=== PATIENT | female | born 1995 | race Caucasian/White ===

== ENCOUNTER 2018-03-18 20:51 | Observation (INO) ==
[2018-03-18 21:18] LABS: Bilirubin,Urine Large (Negative); Blood,Urine Moderate (Negative); Clarity,Urine Cloudy (Clear); Color,Urine Dark Yellow (Yellow); Glucose,Urine (UA) Normal (Normal); Ketones,Urine Negative (Negative); Leukocyte Esterase,Urine Small (Negative); Nitrite,Urine Negative (Negative); PH,Urine 6.5 pH Units (5.0-8.0); Protein,Urine Negative (Neg-Trace); Specific Gravity,Urine 1.009 (1.010-1.025)
[2018-03-18 21:20] LABS: Bacteria,Urine Few per hpf (None-Few); Hyaline Casts,Urine None Seen per lpf (None-Few); Squamous Epithelial Cell,Urine Many per lpf (None-Few)
--- NOTE | 2018-03-18 22:37 | Emergency Department Note ---
Disposition Clinical Impression: Acute hepatitis Cholelithiasis Qualifiers: Cholelithiasis location: other site Biliary obstruction: with biliary obstruction Qualified Code(s): K80.81 - Other cholelithiasis with obstruction Abdominal pain Qualifiers: Abdominal location: unspecified location Qualified Code(s): R10.9 - Unspecified abdominal pain Disposition: Admitted As Inpatient Condition: Good Referrals: NONE,PCP [Primary Care Provider] - Deshawn Flowers MD [Family Provider] - Forms: ED Satisfaction Letter, Work/School Release Time of Disposition: 04:40 Abdominal Pain HPI - General Chief Complaint: ED Abdominal Pain Stated Complaint: RUQ Pain Time Seen by Provider: 03/18/18 22:30 Source: patient, family Mode of arrival: ambulatory Limitations: no limitations Nursing Notes Reviewed: Yes Vital Signs Reviewed: Yes - History of Present Illness HPI Narrative: 22-year-old female presents emergency department for a right upper quadrant pain. She was diagnosed with gallstones approximately 5 to 6 months ago. This was during her . It gradually resolved. She states approximately the past 3 days she has been experiencing significant abdominal pain mostly in the right upper quadrant in epigastric region that radiates to the back. She has associated nausea and vomiting. Reports loose diarrhea with pale coloration. Describes the pain as an ache and sharpness. No injury or trauma to the area. She is scheduled for surgery with Dr. Black March 30. She is been taken Tylenol with minimal relief. She admits to chills. Denies any chest pain. She does report the pain mixer sure breath. Denies any vaginal discharge, urinary symptoms. History of a section. Pain Scale: 7 - Related Data Allergies Allergy/AdvReac Type Severity Reaction Status Date / Time No Known Allergies Allergy Verified 03/19/18 04:02 All systems ED: reviewed and negative except as stated. Review of Systems: As Per HPI Constitutional: Reports: chills. Denies: fever ENT ED: Denies: congestion Cardiovascular: Denies: chest pain Respiratory: Reports: dyspnea Gastrointestinal: Reports: abdominal pain, nausea, vomiting, diarrhea Genitourinary: Denies: urgency, dysuria Musculoskeletal: Reports: back pain Integumentary: Denies: rash, abrasion Neurological: Denies: headache Abdominal Pain PMH - Past Medical History Medical history: Reports: no medical history Female Surgical History: Reports: Psychiatric history: Reports: no psych history - Social History Smoking status: Never smoker Alcohol use: Reports: none Drug use: Reports: none Physical Exam - General Limitations: no limitations General appearance: alert, in no apparent distress - Head Head exam: atraumatic, normocephalic, normal inspection - Eye Eye exam: Present: normal appearance, PERRL, EOMI. Absent: scleral icterus - ENT ENT exam: normal exam, normal oropharynx, mucous membranes moist - Neck Neck exam: Present: normal inspection, full ROM, trachea midline - Chest Chest inspection: Present: normal inspection, symmetric chest wall rise - Respiratory Respiratory exam: Present: normal lung sounds bilaterally - Cardiovascular Cardiovascular exam: Present: regular rate, normal rhythm, normal heart sounds - Abdominal Exam Abdominal exam: Present: tenderness, normal bowel sounds, Ramos's sign. Absent : distention, guarding, rebound, rigidity, tenderness at McBurney's Point Abdominal tenderness: Present: RUQ, epigastrium - Extremities Exam Extremities exam: Present: normal inspection, full ROM, normal capillary refill. Absent: tenderness, pedal edema - Back Exam Back exam: Present: normal inspection, full ROM. Absent: tenderness - Neurological Exam Neurological exam: Present: alert, oriented X3 - Psychiatric Psychiatric exam: Present: normal affect, normal mood - Skin Skin exam: Present: warm, dry, intact, normal color. Absent: rash, cyanosis, diaphoresis Course Course Narrative: Patient presents with right upper quadrant for the past several days. History of gallstones. She is scheduled for surgery within the next 2 weeks. She denies alcohol use. She is tender in the right upper quadrant in epigastric region. No evidence of jaundice or sclera ictera. Labs ordered pain medication ordered. - Reevaluation(s) Reevaluation #1: Review for labs is not show a leukocytosis. Her LFTs are significantly elevated. Hepatitis panel ordered. Her bilirubin is also elevated. Concerning for possible acute cholecystitis v hepatitis. She admits eating sushi but after clarification she states she does not yet to [employer]. Gallbladder ultrasound ordered. Reevaluation #2: Patient reports intermittent relief pain medication. Review of her gallbladder ultrasound shows cholelithiasis without evidence of cholecystitis. On repeat abdominal examination she continues to be tender in the right upper quadrant. I discussed with the on-call surgeon Dr. Enrique who believes this is likely not the gallbladder and possibly acute hepatitis. The panel is pending. He would be happy to see the patient in consultation. [place] the patient to the hospital service for further pain management, nausea vomiting, elevated liver enzymes and possible acute hepatitis. Patients in agreement with this plan. Gallbladder Ultrasound 03/19/18 02:18 IMPRESSION: Cholelithiasis without evidence of cholecystitis or bile duct dilatation. Hepatic steatosis. D/ / Dada Melendez / Dada Melendez Interpreting Provider: Dada Melendez Time: 04:19 - Consultations Consultation #1: Spoke with on-call hospitalist antoinette Vásquez to admit for RUQ pain, acute hepatitis, cholelithiasis. No further orders at this time Time: 04:40 Vital Signs Temperature 97.7 F 03/18/18 20:54 Pulse Rate 103 03/18/18 20:54 Respiratory Rate 16 03/18/18 20:54 Blood Pressure 132/95 03/18/18 20:54 O2 Sat by Pulse Oximetry 98 03/18/18 20:54 Temperature 97.7 F 03/18/18 20:54 Pulse Rate 90 03/19/18 04:00 Respiratory Rate 16 03/19/18 04:00 Blood Pressure 120/84 03/19/18 04:00 O2 Sat by Pulse Oximetry 99 03/19/18 04:00 Oxygen Delivery Oxygen Delivery Room Air Abdominal Pain - MDM Narrative Medical decision making narrative: Patient was discussed with my attending physician who agrees with ED management and final disposition. They independently evaluated the patient. Please refer to their attestation to this encounter for additional information. This note was generated by [employer] voice recognition software and as a result grammatical or spelling errors may occur using this program. - Medical Records Medical records reviewed: Yes I reviewed the patient's medical records. - Lab Data Lab results reviewed: Yes I reviewed the patient's lab results. Result diagrams: 03/18/18 22:31 03/18/18 22:31 Lab Results 03/18/18 03/18/18 03/18/18 Range/Units 21:04 21:04 22:31 WBC 6.7 (4.3-11.1) K/mcL RBC 5.19 H (3.82-4.97) M/mcL Hgb 14.1 (11.5-15.4) g/dL Hct 41.4 (35.3-44.9) % MCV 79.8 L (83.0-100.0) fL MCH 27.2 L (28.0-33.3) pg MCHC 34.1 (31.6-35.5) g/dL RDW 14.4 (11.5-14.5) % Plt Count 323 (140-400) K/mcL MPV 9.6 (9.4-12.4) fL Immature Gran % 0.5 (0-4) % Seg Neutrophils % 67.1 % Lymphocytes % 20.0 % Monocytes % 10.7 % Eosinophils % 1.4 % Basophils % 0.3 % Neutrophils # 4.5 (1.6-8.9) K/mcL Lymphocytes # 1.3 (0.6-4.6) K/mcL Monocytes # 0.7 (0.0-1.3) K/mcL Eosinophils # 0.1 (0.0-0.6) K/mcL Basophils # 0.0 (0.0-0.2) K/mcL Sodium (136-145) mEq/L Potassium (3.5-5.1) mEq/L Chloride (98-107) mEq/L Carbon Dioxide (23-29) mEq/L BUN (6-20) mg/dL Creatinine (0.60-1.20) mg/dL Est GFR ( Amer) (> 60) Est GFR (Non-Af Amer) (> 60) BUN/Creatinine Ratio (6-26) Glucose (70-105) mg/dL Calculated Osmolality (280-300) Calcium (8.6-10.3) mg/dL Total Bilirubin (0.3-1.0) mg/dL Direct Bilirubin (0.0-0.2) mg/dL Indirect Bilirubin (0.0-1.2) mg/dL AST (13-39) Units/L ALT (7-52) Units/L Alkaline Phosphatase (34-104) Units/L Serum Total Protein (6.4-8.9) g/dL Albumin (3.5-5.7) g/dL Globulin (2.4-3.5) g/dL Albumin/Globulin Ratio (1.1-2.2) Lipase (11-82) Units/L Urine Color Dark Yellow (Yellow) Urine Clarity Cloudy A (Clear) Urine pH 6.5 (5.0-8.0) pH Units Ur Specific [place] 1.009 L (1.010-1.025) Urine Protein Negative (Neg-Trace) mg/dL Urine Glucose (UA) Normal (Normal) mg/dL Urine Ketones Negative (Negative) mg/dL Urine Blood Moderate H (Negative) Urine Nitrite Negative (Negative) Urine Bilirubin Large H (Negative) Urine Urobilinogen 4.0 H (Normal) mg/dL Ur Leukocyte Esterase Small H (Negative) Urine Microscopic RBC 3-5 H (0-3) per hpf Urine Microscopic WBC 3-5 H (0-3) per hpf Ur Squamous Epith Cells Many H (None-Few) per lpf Urine Bacteria Few (None-Few) per hpf Hyaline Casts None Seen (None-Few) per lpf Ur Culture Indicated? NO. A (NO) Urine Test Negative (Negative) 03/18/18 Range/Units 22:31 WBC (4.3-11.1) K/mcL RBC (3.82-4.97) M/mcL Hgb (11.5-15.4) g/dL Hct (35.3-44.9) % MCV (83.0-100.0) fL MCH (28.0-33.3) pg MCHC (31.6-35.5) g/dL RDW (11.5-14.5) % Plt Count (140-400) K/mcL MPV (9.4-12.4) fL Immature Gran % (0-4) % Seg Neutrophils % % Lymphocytes % % Monocytes % % Eosinophils % % Basophils % % Neutrophils # (1.6-8.9) K/mcL Lymphocytes # (0.6-4.6) K/mcL Monocytes # (0.0-1.3) K/mcL Eosinophils # (0.0-0.6) K/mcL Basophils # (0.0-0.2) K/mcL Sodium 137 (136-145) mEq/L Potassium 3.7 (3.5-5.1) mEq/L Chloride 106 (98-107) mEq/L Carbon Dioxide 23 (23-29) mEq/L BUN 10 (6-20) mg/dL Creatinine 0.58 L (0.60-1.20) mg/dL Est GFR ( Amer) > 60 (> 60) Est GFR (Non-Af Amer) > 60 (> 60) BUN/Creatinine Ratio 17 (6-26) Glucose 114 H (70-105) mg/dL Calculated Osmolality 284 (280-300) Calcium 9.8 (8.6-10.3) mg/dL Total Bilirubin 2.5 H (0.3-1.0) mg/dL Direct Bilirubin 1.5 H (0.0-0.2) mg/dL Indirect Bilirubin 1.0 (0.0-1.2) mg/dL AST 503 H (13-39) Units/L ALT > 500 H (7-52) Units/L Alkaline Phosphatase 213 H (34-104) Units/L Serum Total Protein 7.7 (6.4-8.9) g/dL Albumin 4.9 (3.5-5.7) g/dL Globulin 2.8 (2.4-3.5) g/dL Albumin/Globulin Ratio 1.8 (1.1-2.2) Lipase 12 (11-82) Units/L Urine Color (Yellow) Urine Clarity (Clear) Urine pH (5.0-8.0) pH Units Ur Specific [place] (1.010-1.025) Urine Protein (Neg-Trace) mg/dL Urine Glucose (UA) (Normal) mg/dL Urine Ketones (Negative) mg/dL Urine Blood (Negative) Urine Nitrite (Negative) Urine Bilirubin (Negative) Urine Urobilinogen (Normal) mg/dL Ur Leukocyte Esterase (Negative) Urine Microscopic RBC (0-3) per hpf Urine Microscopic WBC (0-3) per hpf Ur Squamous Epith Cells (None-Few) per lpf Urine Bacteria (None-Few) per hpf Hyaline Casts (None-Few) per lpf Ur Culture Indicated? (NO) Urine Test (Negative) - Radiology Data Radiology results reviewed: Yes I reviewed the patient's radiology results. Gallbladder Ultrasound 03/19/18 02:18
--- NOTE | 2018-03-18 23:18 | Emergency Department Note ---
Disposition Clinical Impression: Acute hepatitis Cholelithiasis Qualifiers: Cholelithiasis location: other site Biliary obstruction: with biliary obstruction Qualified Code(s): K80.81 - Other cholelithiasis with obstruction Abdominal pain Qualifiers: Abdominal location: unspecified location Qualified Code(s): R10.9 - Unspecified abdominal pain Disposition: Admitted As Inpatient Condition: Good Referrals: NONE,PCP [Primary Care Provider] - Deshawn Flowers MD [Family Provider] - Forms: ED Satisfaction Letter, Work/School Release Time of Disposition: 03:55 General Adult HPI - General Chief complaint: ED Abdominal Pain Stated complaint: RUQ Pain Time Seen by Provider: 03/18/18 22:30 Source: patient Mode of arrival: private vehicle Limitations: no limitations Nursing Notes Reviewed: Yes Vital Signs Reviewed: Yes - History of Present Illness HPI Narrative: Ms. Mckinnon is a 22 yo F with a PMH of Cholelithiasis presents with RUQ pain for the last 3 days. She states the pain started on Friday without resolve in the RUQ and radiates to her back with N/V episodes periodically. [facility] which confirmed cholelithiasis without cholecystitis and is scheduled for surgery here at [place] on the . She denies fevers, SOB, CP, changes to her bowel or bladder and vaginal discharge. I have re-performed and reviewed the history documented by the medical student, and I confirm its accuracy except as noted below Please see my note for further details regarding the full history, review systems, physical exam and medical decision-making Pain Scale: 7 - Related Data Allergies Allergy/AdvReac Type Severity Reaction Status Date / Time No Known Allergies Allergy Verified 09/26/17 20:19 Past Medical History - Past Medical History Medical history: Reports: no medical history Psychiatric history: Reports: no psych history - Social History Smoking Status: Never smoker Alcohol use: Reports: none Drug use: Reports: none Physical Exam - General Limitations: no limitations General appearance: alert, in no apparent distress Course Vital Signs Temperature 97.7 F 03/18/18 20:54 Pulse Rate 103 03/18/18 20:54 Respiratory Rate 16 03/18/18 20:54 Blood Pressure 132/95 03/18/18 20:54 O2 Sat by Pulse Oximetry 98 03/18/18 20:54 Temperature 97.7 F 03/18/18 20:54 Pulse Rate 71 03/19/18 02:58 Respiratory Rate 15 03/19/18 02:58 Blood Pressure 121/82 03/19/18 02:58 O2 Sat by Pulse Oximetry 100 03/19/18 02:58 Oxygen Delivery Oxygen Delivery Room Air Medical Decision Making - MDM Narrative Medical decision making narrative: Patient was discussed with my attending physician who agrees with ED management and final disposition. They independently evaluated the patient. Please refer to their attestation to this encounter for additional information. This note was generated by [employer] voice recognition software and as a result grammatical or spelling errors may occur using this program. - Medical Records Medical records reviewed: Yes I reviewed the patient's medical records. - Lab Data Lab results reviewed: Yes I reviewed the patient's lab results. Result diagrams: 03/18/18 22:31 03/18/18 22:31 Lab Results 03/18/18 03/18/18 03/18/18 Range/Units 21:04 21:04 22:31 WBC 6.7 (4.3-11.1) K/mcL RBC 5.19 H (3.82-4.97) M/mcL Hgb 14.1 (11.5-15.4) g/dL Hct 41.4 (35.3-44.9) % MCV 79.8 L (83.0-100.0) fL MCH 27.2 L (28.0-33.3) pg MCHC 34.1 (31.6-35.5) g/dL RDW 14.4 (11.5-14.5) % Plt Count 323 (140-400) K/mcL MPV 9.6 (9.4-12.4) fL Immature Gran % 0.5 (0-4) % Seg Neutrophils % 67.1 % Lymphocytes % 20.0 % Monocytes % 10.7 % Eosinophils % 1.4 % Basophils % 0.3 % Neutrophils # 4.5 (1.6-8.9) K/mcL Lymphocytes # 1.3 (0.6-4.6) K/mcL Monocytes # 0.7 (0.0-1.3) K/mcL Eosinophils # 0.1 (0.0-0.6) K/mcL Basophils # 0.0 (0.0-0.2) K/mcL Sodium (136-145) mEq/L Potassium (3.5-5.1) mEq/L Chloride (98-107) mEq/L Carbon Dioxide (23-29) mEq/L BUN (6-20) mg/dL Creatinine (0.60-1.20) mg/dL Est GFR ( Amer) (> 60) Est GFR (Non-Af Amer) (> 60) BUN/Creatinine Ratio (6-26) Glucose (70-105) mg/dL Calculated Osmolality (280-300) Calcium (8.6-10.3) mg/dL Total Bilirubin (0.3-1.0) mg/dL Direct Bilirubin (0.0-0.2) mg/dL Indirect Bilirubin (0.0-1.2) mg/dL AST (13-39) Units/L ALT (7-52) Units/L Alkaline Phosphatase (34-104) Units/L Serum Total Protein (6.4-8.9) g/dL Albumin (3.5-5.7) g/dL Globulin (2.4-3.5) g/dL Albumin/Globulin Ratio (1.1-2.2) Lipase (11-82) Units/L Urine Color Dark Yellow (Yellow) Urine Clarity Cloudy A (Clear) Urine pH 6.5 (5.0-8.0) pH Units Ur Specific [place] 1.009 L (1.010-1.025) Urine Protein Negative (Neg-Trace) mg/dL Urine Glucose (UA) Normal (Normal) mg/dL Urine Ketones Negative (Negative) mg/dL Urine Blood Moderate H (Negative) Urine Nitrite Negative (Negative) Urine Bilirubin Large H (Negative) Urine Urobilinogen 4.0 H (Normal) mg/dL Ur Leukocyte Esterase Small H (Negative) Urine Microscopic RBC 3-5 H (0-3) per hpf Urine Microscopic WBC 3-5 H (0-3) per hpf Ur Squamous Epith Cells Many H (None-Few) per lpf Urine Bacteria Few (None-Few) per hpf Hyaline Casts None Seen (None-Few) per lpf Ur Culture Indicated? NO. A (NO) Urine Test Negative (Negative) 03/18/18 Range/Units 22:31 WBC (4.3-11.1) K/mcL RBC (3.82-4.97) M/mcL Hgb (11.5-15.4) g/dL Hct (35.3-44.9) % MCV (83.0-100.0) fL MCH (28.0-33.3) pg MCHC (31.6-35.5) g/dL RDW (11.5-14.5) % Plt Count (140-400) K/mcL MPV (9.4-12.4) fL Immature Gran % (0-4) % Seg Neutrophils % % Lymphocytes % % Monocytes % % Eosinophils % % Basophils % % Neutrophils # (1.6-8.9) K/mcL Lymphocytes # (0.6-4.6) K/mcL Monocytes # (0.0-1.3) K/mcL Eosinophils # (0.0-0.6) K/mcL Basophils # (0.0-0.2) K/mcL Sodium 137 (136-145) mEq/L Potassium 3.7 (3.5-5.1) mEq/L Chloride 106 (98-107) mEq/L Carbon Dioxide 23 (23-29) mEq/L BUN 10 (6-20) mg/dL Creatinine 0.58 L (0.60-1.20) mg/dL Est GFR ( Amer) > 60 (> 60) Est GFR (Non-Af Amer) > 60 (> 60) BUN/Creatinine Ratio 17 (6-26) Glucose 114 H (70-105) mg/dL Calculated Osmolality 284 (280-300) Calcium 9.8 (8.6-10.3) mg/dL Total Bilirubin 2.5 H (0.3-1.0) mg/dL Direct Bilirubin 1.5 H (0.0-0.2) mg/dL Indirect Bilirubin 1.0 (0.0-1.2) mg/dL AST 503 H (13-39) Units/L ALT > 500 H (7-52) Units/L Alkaline Phosphatase 213 H (34-104) Units/L Serum Total Protein 7.7 (6.4-8.9) g/dL Albumin 4.9 (3.5-5.7) g/dL Globulin 2.8 (2.4-3.5) g/dL Albumin/Globulin Ratio 1.8 (1.1-2.2) Lipase 12 (11-82) Units/L Urine Color (Yellow) Urine Clarity (Clear) Urine pH (5.0-8.0) pH Units Ur Specific [place] (1.010-1.025) Urine Protein (Neg-Trace) mg/dL Urine Glucose (UA) (Normal) mg/dL Urine Ketones (Negative) mg/dL Urine Blood (Negative) Urine Nitrite (Negative) Urine Bilirubin (Negative) Urine Urobilinogen (Normal) mg/dL Ur Leukocyte Esterase (Negative) Urine Microscopic RBC (0-3) per hpf Urine Microscopic WBC (0-3) per hpf Ur Squamous Epith Cells (None-Few) per lpf Urine Bacteria (None-Few) per hpf Hyaline Casts (None-Few) per lpf Ur Culture Indicated? (NO) Urine Test (Negative) - Radiology Data Radiology results reviewed: Yes I reviewed the patient's radiology results. Gallbladder Ultrasound 03/19/18 02:18 IMPRESSION: Cholelithiasis without evidence of cholecystitis or bile duct dilatation. Hepatic steatosis. D/ / Dada Melendez / Dada Melendez Interpreting Provider: Dada Melendez
[2018-03-18 23:23] LABS: Basophils % 0.3 %; Eosinophils # 0.1 K/mcL (0.0-0.6); Eosinophils % 1.4 %; Hematocrit 41.4 % (35.3-44.9); Hemoglobin 14.1 g/dL (11.5-15.4); Immature Granulocytes % 0.5 % (0-4); Lymphocytes # 1.3 K/mcL (0.6-4.6); Mean Corpuscular HGB Conc 34.1 g/dL (31.6-35.5); Mean Corpuscular Hemoglobin 27.2 pg (28.0-33.3); Mean Corpuscular Volume 79.8 fL (83.0-100.0); Mean Platelet Volume 9.6 fL (9.4-12.4); Monocytes # 0.7 K/mcL (0.0-1.3); Monocytes % 10.7 %; Neutrophils # 4.5 K/mcL (1.6-8.9); Platelet Count 323 K/mcL (140-400); Red Blood Count 5.19 M/mcL (3.82-4.97); Red Cell Distribution Width 14.4 % (11.5-14.5); Segmented Neutrophils % 67.1 %
[2018-03-18 23:27] LABS: Alanine Aminotransferase > 500 Units/L (7-52); Albumin 4.9 g/dL (3.5-5.7); Albumin/Globulin Ratio 1.8 (1.1-2.2); Alkaline Phosphatase 213 Units/L (34-104); Aspartate Amino Transferase 503 Units/L (13-39); BUN/Creatinine Ratio 17 (6-26); Bilirubin,Direct 1.5 mg/dL (0.0-0.2); Bilirubin,Total 2.5 mg/dL (0.3-1.0); Blood Urea Nitrogen 10 mg/dL (6-20); Calcium 9.8 mg/dL (8.6-10.3); Carbon Dioxide 23 mEq/L (23-29); Chloride 106 mEq/L (98-107); Globulin 2.8 g/dL (2.4-3.5); Glucose 114 mg/dL (70-105); Lipase 12 Units/L (11-82); Osmolality,Calculated 284 (280-300); Potassium 3.7 mEq/L (3.5-5.1); Sodium 137 mEq/L (136-145); Total Protein 7.7 g/dL (6.4-8.9); eGFR For Non-African Americans > 60 (> 60)
[2018-03-19] MEDS ORDERED: Ondansetron 4 MG/2 ML VIAL IVP ONE (00:40)
[2018-03-19] MEDS ORDERED: *HR* FentaNYL (PF) 100 MCG/2 ML VIAL IVP ONE ×3 (00:40→04:24)
--- NOTE | 2018-03-19 02:23 | Emergency Department Note ---
Disposition Clinical Impression: Acute hepatitis Cholelithiasis Qualifiers: Cholelithiasis location: other site Biliary obstruction: with biliary obstruction Qualified Code(s): K80.81 - Other cholelithiasis with obstruction Abdominal pain Qualifiers: Abdominal location: unspecified location Qualified Code(s): R10.9 - Unspecified abdominal pain Disposition: Admitted As Inpatient Condition: Good Referrals: NONE,PCP [Primary Care Provider] - Deshawn Flowers MD [Family Provider] - Forms: ED Satisfaction Letter, Work/School Release General Adult HPI - General Chief complaint: ED Abdominal Pain Stated complaint: RUQ Pain Time Seen by Provider: 03/18/18 22:30 Source: patient Mode of arrival: private vehicle Limitations: no limitations Nursing Notes Reviewed: Yes Vital Signs Reviewed: Yes - History of Present Illness Pain Scale: 7 - Related Data Allergies Allergy/AdvReac Type Severity Reaction Status Date / Time No Known Allergies Allergy Verified 03/19/18 04:02 Constitutional: Reports: chills. Denies: fever ENT ED: Denies: congestion Cardiovascular: Denies: chest pain Respiratory: Reports: dyspnea Gastrointestinal: Reports: abdominal pain, nausea, vomiting, diarrhea Genitourinary: Denies: urgency, dysuria Musculoskeletal: Reports: back pain Integumentary: Denies: rash, abrasion Neurological: Denies: headache Past Medical History - Past Medical History Medical history: Reports: no medical history Psychiatric history: Reports: no psych history - Social History Smoking Status: Never smoker Alcohol use: Reports: none Drug use: Reports: none Physical Exam - General Limitations: no limitations General appearance: alert, in no apparent distress Course Vital Signs Temperature 97.7 F 03/18/18 20:54 Pulse Rate 103 03/18/18 20:54 Respiratory Rate 16 03/18/18 20:54 Blood Pressure 132/95 03/18/18 20:54 O2 Sat by Pulse Oximetry 98 03/18/18 20:54 Temperature 97.7 F 03/18/18 20:54 Pulse Rate 79 03/19/18 04:43 Respiratory Rate 14 03/19/18 04:43 Blood Pressure 125/83 03/19/18 04:43 O2 Sat by Pulse Oximetry 99 03/19/18 04:43 Oxygen Delivery Oxygen Delivery Room Air Medical Decision Making - Medical Records Medical records reviewed: Yes I reviewed the patient's medical records. - Lab Data Lab results reviewed: Yes I reviewed the patient's lab results. Result diagrams: 03/18/18 22:31 03/18/18 22:31 Lab Results 03/18/18 03/18/18 03/18/18 Range/Units 21:04 21:04 22:31 WBC 6.7 (4.3-11.1) K/mcL RBC 5.19 H (3.82-4.97) M/mcL Hgb 14.1 (11.5-15.4) g/dL Hct 41.4 (35.3-44.9) % MCV 79.8 L (83.0-100.0) fL MCH 27.2 L (28.0-33.3) pg MCHC 34.1 (31.6-35.5) g/dL RDW 14.4 (11.5-14.5) % Plt Count 323 (140-400) K/mcL MPV 9.6 (9.4-12.4) fL Immature Gran % 0.5 (0-4) % Seg Neutrophils % 67.1 % Lymphocytes % 20.0 % Monocytes % 10.7 % Eosinophils % 1.4 % Basophils % 0.3 % Neutrophils # 4.5 (1.6-8.9) K/mcL Lymphocytes # 1.3 (0.6-4.6) K/mcL Monocytes # 0.7 (0.0-1.3) K/mcL Eosinophils # 0.1 (0.0-0.6) K/mcL Basophils # 0.0 (0.0-0.2) K/mcL Sodium (136-145) mEq/L Potassium (3.5-5.1) mEq/L Chloride (98-107) mEq/L Carbon Dioxide (23-29) mEq/L BUN (6-20) mg/dL Creatinine (0.60-1.20) mg/dL Est GFR ( Amer) (> 60) Est GFR (Non-Af Amer) (> 60) BUN/Creatinine Ratio (6-26) Glucose (70-105) mg/dL Calculated Osmolality (280-300) Calcium (8.6-10.3) mg/dL Total Bilirubin (0.3-1.0) mg/dL Direct Bilirubin (0.0-0.2) mg/dL Indirect Bilirubin (0.0-1.2) mg/dL AST (13-39) Units/L ALT (7-52) Units/L Alkaline Phosphatase (34-104) Units/L Serum Total Protein (6.4-8.9) g/dL Albumin (3.5-5.7) g/dL Globulin (2.4-3.5) g/dL Albumin/Globulin Ratio (1.1-2.2) Lipase (11-82) Units/L Urine Color Dark Yellow (Yellow) Urine Clarity Cloudy A (Clear) Urine pH 6.5 (5.0-8.0) pH Units Ur Specific [place] 1.009 L (1.010-1.025) Urine Protein Negative (Neg-Trace) mg/dL Urine Glucose (UA) Normal (Normal) mg/dL Urine Ketones Negative (Negative) mg/dL Urine Blood Moderate H (Negative) Urine Nitrite Negative (Negative) Urine Bilirubin Large H (Negative) Urine Urobilinogen 4.0 H (Normal) mg/dL Ur Leukocyte Esterase Small H (Negative) Urine Microscopic RBC 3-5 H (0-3) per hpf Urine Microscopic WBC 3-5 H (0-3) per hpf Ur Squamous Epith Cells Many H (None-Few) per lpf Urine Bacteria Few (None-Few) per hpf Hyaline Casts None Seen (None-Few) per lpf Ur Culture Indicated? NO. A (NO) Urine Test Negative (Negative) 03/18/18 Range/Units 22:31 WBC (4.3-11.1) K/mcL RBC (3.82-4.97) M/mcL Hgb (11.5-15.4) g/dL Hct (35.3-44.9) % MCV (83.0-100.0) fL MCH (28.0-33.3) pg MCHC (31.6-35.5) g/dL RDW (11.5-14.5) % Plt Count (140-400) K/mcL MPV (9.4-12.4) fL Immature Gran % (0-4) % Seg Neutrophils % % Lymphocytes % % Monocytes % % Eosinophils % % Basophils % % Neutrophils # (1.6-8.9) K/mcL Lymphocytes # (0.6-4.6) K/mcL Monocytes # (0.0-1.3) K/mcL Eosinophils # (0.0-0.6) K/mcL Basophils # (0.0-0.2) K/mcL Sodium 137 (136-145) mEq/L Potassium 3.7 (3.5-5.1) mEq/L Chloride 106 (98-107) mEq/L Carbon Dioxide 23 (23-29) mEq/L BUN 10 (6-20) mg/dL Creatinine 0.58 L (0.60-1.20) mg/dL Est GFR ( Amer) > 60 (> 60) Est GFR (Non-Af Amer) > 60 (> 60) BUN/Creatinine Ratio 17 (6-26) Glucose 114 H (70-105) mg/dL Calculated Osmolality 284 (280-300) Calcium 9.8 (8.6-10.3) mg/dL Total Bilirubin 2.5 H (0.3-1.0) mg/dL Direct Bilirubin 1.5 H (0.0-0.2) mg/dL Indirect Bilirubin 1.0 (0.0-1.2) mg/dL AST 503 H (13-39) Units/L ALT > 500 H (7-52) Units/L Alkaline Phosphatase 213 H (34-104) Units/L Serum Total Protein 7.7 (6.4-8.9) g/dL Albumin 4.9 (3.5-5.7) g/dL Globulin 2.8 (2.4-3.5) g/dL Albumin/Globulin Ratio 1.8 (1.1-2.2) Lipase 12 (11-82) Units/L Urine Color (Yellow) Urine Clarity (Clear) Urine pH (5.0-8.0) pH Units Ur Specific [place] (1.010-1.025) Urine Protein (Neg-Trace) mg/dL Urine Glucose (UA) (Normal) mg/dL Urine Ketones (Negative) mg/dL Urine Blood (Negative) Urine Nitrite (Negative) Urine Bilirubin (Negative) Urine Urobilinogen (Normal) mg/dL Ur Leukocyte Esterase (Negative) Urine Microscopic RBC (0-3) per hpf Urine Microscopic WBC (0-3) per hpf Ur Squamous Epith Cells (None-Few) per lpf Urine Bacteria (None-Few) per hpf Hyaline Casts (None-Few) per lpf Ur Culture Indicated? (NO) Urine Test (Negative) - Radiology Data Radiology results reviewed: Yes I reviewed the patient's radiology results. Gallbladder Ultrasound 03/19/18 02:18 IMPRESSION: Cholelithiasis without evidence of cholecystitis or bile duct dilatation. Hepatic steatosis. D/ / Dada Melendez / Dada Melendez Interpreting Provider: Dada Melendez Attestation Statement - Attestation Attestation: I, Tate Rivera MD, personally evaluated this patient and discussed their management with the resident physician. I reviewed the resident's note and agree with the documented findings, medical decision making, and plan of care. 22-year-old female with history of known gallstones who is scheduled for a cholecystectomy in about 2 weeks presents to the emergency department with a complaint of increased epigastric and right upper quadrant abdominal pain over the past 3 days. The pain is been worse and more constant. There has been nausea and vomiting with the pain. No definite fever but some chills and sweats. Some diarrhea with light-colored stools. No melena, hematemesis, or hematochezia. No urinary symptoms. On examination patient is a well-developed well-nourished well-appearing female in no acute distress. She is alert and oriented 3. There is no cyanosis or diaphoresis. Breath sounds are clear and equal bilaterally. Heart regular rate and rhythm. Abdomen soft with normal bowel sounds. There is mild to moderate epigastric and right upper quadrant tenderness on direct palpation. Labs reviewed. New significant elevation in total bilirubin and transaminases. Gallbladder ultrasound obtained and showed: The left cyanosis but no evidence of cholecystitis or biliary ductal dilatation. Surgeon marketing liaison, Dr. Enrique, was consulted and felt that the elevated enzymes were likely not related to the gallbladder. He did recommend however admission by the hospitalist for surgery consultation. The hospitalist, Dr. Xavier, was consulted and accepted admission of the patient.
[2018-03-19] MEDS ORDERED: Ketorolac 15 MG/ML VIAL IVP ONE (03:01)
[2018-03-19] MEDS ORDERED: 0.9 % Sodium Chloride 1,000 ML IVC ONE (04:37)
[2018-03-19] MEDS ORDERED: Ibuprofen 400 MG TABLET PO PRN (05:00)
[2018-03-19] MEDS ORDERED: Ketorolac 30 MG/ML VIAL IVP PRN (05:00)
[2018-03-19] MEDS ORDERED: Naloxone 0.4 MG/ML INJ IVP PRN (05:00)
[2018-03-19] MEDS ORDERED: Ondansetron 4 MG/2 ML VIAL IVP PRN (05:02)
[2018-03-19] MEDS ORDERED: traMADol 50 MG TABLET PO PRN (05:10)
--- NOTE | 2018-03-19 05:15 | Internal Med History&Physical ---
Date of Encounter: 03/19/18 Time of Encounter: 05:12 Internal Medicine - H&P: HPI Chief complaint: Abdominal pain Admitted From: Home Plans for Post Hospital Care: Home History of present illness: Megan Mckinnon is a 22 year old woman who presents with the complaint of abdominal pain. She says she was diagnosed with symptomatic cholelithiasis and number of months ago when she was however pain improved and she is currently scheduled for an elective cholecystectomy in [address] Black. She says she has only had intermittent episodes of right upper quadrant pain since then that are short-lived, brought on by greasy food and subside with routine analgesics. However she says since Friday after eating a hamburger she has had rebellious right upper quadrant and epigastric pain that she initially thought was going to be her usual pain crisis however has persisted since then and is not improving him a now associated with nausea and vomiting. She also admits to having urine that is darker in color than usual although without dysuria and has noticed her stool has become geographic area intelligence officer in color almost grayish or claylike in appearance. In the ER she had an ultrasound done which showed cholelithiasis but no evidence of acute cholecystitis. As not been febrile and she is without chills. Her labs are remarkable for significant elevation in her transaminases and mild elevation in bilirubin and alkaline phosphatase. She is admitted for further observation. Past Med Surg Social Fam HX - Past Medical History Medical history: no medical history Psychiatric history: no psych history - Social History Smoking Status: Never smoker Alcohol use: none Drug use: none Internal Medicine - H&P: Meds 3 Allergy/AdvReac Type Severity Reaction Status Date / Time No Known Allergies Allergy Verified 03/19/18 04:02 All Systems PM: A 10-system review of systems was performed and is negative for pertinent findings except as documented above in the HPI. - Constitutional Vitals: Temp Pulse Resp BP Pulse Ox 97.7 F 79 14 125/83 99 03/18/18 20:54 03/19/18 04:43 03/19/18 04:43 03/19/18 04:43 03/19/18 04:43 Exam: Vitals: Reviewed General: Obese white female lying comfortably in bed in no acute distress Skin: Warm and supple HEENT: Moist mucous membranes. No conjunctivae pallor. Mild scleral icterus is present. Neck: No lymphadenopathy. No JVD. No carotid bruits. No palpable thyroid. Chest: Normal thoracic expansion. Normal breath sounds. Clear to auscultation. Heart: Normal S1 & S2; rhythmic. No rubs or murmurs. Abdomen: Non-distended, soft and tender to deep palpation in the epigastrium and right upper quadrant. No peritoneal reaction. Liver seems enlarged. Extremities: No clubbing, cyanosis or edema. No calf tenderness. Normal distal pulses. Neurological: Awake, alert and oriented to person, place and time. No focal deficits. Psych: Affect appropriate. Internal Med - H&P Results - Labs CBC & Chem 7: 03/18/18 22:31 03/18/18 22:31 - Assessment and plan (1) Abdominal pain Current Visit: Yes Status: Acute Assessment and plan: The presence of cholelithiasis appears to be a confounding factor however with the significant elevation in the transaminases more so than the obstructive enzymes there is concern for a hepatocellular process such as a viral hepatitis as the cause of her current symptoms. She has choluria and acholia with a predominance of ALT elevation over AST, no history of alcohol use, not currently and has a tendency to eat out. Consent for acute viral hepatitis A setting of her recent outbreak. We will send viral hepatitis panel, place on IV fluids, symptomatic pain control. If viral hepatitis panel is negative will benefit from GI consultation for further evaluation. We will also obtain an acetaminophen level given her reported history of taking this for her pain over the past days. At this times there are no signs of liver insufficiency/failure. Qualifiers: Abdominal location: right upper quadrant Qualified Code(s): R10.11 - Right upper quadrant pain (2) Cholelithiasis Current Visit: Yes Status: Acute Assessment and plan: Although known to have cholelithiasis and has a mild elevation in the obstructive enzymes of her LFTs, her current pain crisis does not appear to be secondary to this and there were no imaging findings concerning for and a choledochal obstruction or acute cholecystitis. She can follow-up with surgery for her elective cholecystectomy once this episode resolves. Dr. Enrique from surgery was contacted by the ER and made aware of the situation and equally concurs that it does not appear to be a surgical process at this time. Qualifiers: Cholelithiasis location: gallbladder Cholecystitis presence: without cholecystitis Biliary obstruction: with biliary obstruction Qualified Code(s ): K80.21 - Calculus of gallbladder without cholecystitis with obstruction (3) Obesity (BMI 30-39.9) Current Visit: Yes Status: Chronic Assessment and plan: Will benefit from power lineman consultation. Educated on therapeutic lifestyle measures. (4) DVT prophylaxis Current Visit: Yes Status: Acute Assessment and plan: Subcutaneous heparin ordered. - Time Spent With Patient Total time spent is greater than 50% in coordination of care (as documented) at patient's floor/unit and/or counseling patient: Greater than 35 minutes
[2018-03-19] MEDS: Ringers Solution, Lactated 1,000 ML IVC SCH ×2 (05:42→15:19)
[2018-03-19] MEDS: *HR* Heparin 5,000 UNIT/ML VIAL SQ SCH ×3 (05:50→20:59)
[2018-03-19 05:56] LABS: INR 1.1; Prothrombin Time 12.5 Seconds (9.4-12.1)
[2018-03-19] MEDS: Pantoprazole 40 MG VIAL IVP SCH (07:52)
[2018-03-19] MEDS: *HR* OxyCODONE Immed Rel 5 MG TABLET PO PRN ×3 (07:52→20:59)
[2018-03-19 10:00] LABS: Amphetamine Screen,Urine Negative ng/mL (Cutoff=1000); Barbiturate Screen,Urine Negative ng/mL (Cutoff=200); Benzodiazepines Screen,Urine Negative ng/mL (Cutoff=200); Cannabinoid Screen,Urine Negative ng/mL (Cutoff = 50); Cocaine Screen,Urine Negative ng/mL (Cutoff= 300); Opiate Screen,Urine Negative ng/mL (Cutoff=300); Phencyclidine Screen,Urine Negative ng/mL (Cutoff=25)
--- NOTE | 2018-03-19 11:34 | Event Note ---
Date of Encounter: 03/19/18 Time of Encounter: 09:40 Patient was admitted for abdominal pain and deranged liver function test. Mixed pattern of hepatocellular injury and cholestasis. US showed fatty liver and did not show any cholecystitis or ongoing CBD obstruction. ?passed stone vs. hepatitis. Follow-up on hepatitis panel and trend LFT. If hepatitis panel is unremarkable and LFT downtrending, probable d/c tomorrow with elective cholecystectomy as planned. Advance diet as tolerated.
[2018-03-20] MEDS: Ketorolac 30 MG/ML VIAL IVP PRN ×2 (01:33→10:42)
[2018-03-20 02:50] LABS: Hepatitis A Antibody IgM Nonreactive (Nonreactive); Hepatitis B Core IgM Nonreactive (Nonreactive); Hepatitis B Surface Antigen Nonreactive (Nonreactive); Hepatitis C Virus Antibody Nonreactive (Nonreactive)
[2018-03-20 03:49] LABS: Basophils % 0.4 %; Eosinophils # 0.2 K/mcL (0.0-0.6); Eosinophils % 4.5 %; Hematocrit 35.5 % (35.3-44.9); Immature Granulocytes % 0.6 % (0-4); Lymphocytes # 1.5 K/mcL (0.6-4.6); Lymphocytes % 30.2 %; Mean Corpuscular HGB Conc 33.5 g/dL (31.6-35.5); Mean Corpuscular Hemoglobin 26.6 pg (28.0-33.3); Mean Corpuscular Volume 79.2 fL (83.0-100.0); Mean Platelet Volume 9.1 fL (9.4-12.4); Monocytes # 0.6 K/mcL (0.0-1.3); Monocytes % 11.2 %; Neutrophils # 2.7 K/mcL (1.6-8.9); Platelet Count 241 K/mcL (140-400); Red Blood Count 4.48 M/mcL (3.82-4.97); Red Cell Distribution Width 14.4 % (11.5-14.5); Segmented Neutrophils % 53.1 %
[2018-03-20 03:50] LABS: Hemoglobin 11.9 g/dL (11.5-15.4)
[2018-03-20 04:14] LABS: Alanine Aminotransferase 412 Units/L (7-52); Albumin 3.9 g/dL (3.5-5.7); Albumin/Globulin Ratio 1.6 (1.1-2.2); Alkaline Phosphatase 157 Units/L (34-104); Aspartate Amino Transferase 149 Units/L (13-39); BUN/Creatinine Ratio 10 (6-26); Bilirubin,Total 1.6 mg/dL (0.3-1.0); Blood Urea Nitrogen 5 mg/dL (6-20); Carbon Dioxide 25 mEq/L (23-29); Chloride 106 mEq/L (98-107); Globulin 2.4 g/dL (2.4-3.5); Glucose 84 mg/dL (70-105); Osmolality,Calculated 284 (280-300); Potassium 3.5 mEq/L (3.5-5.1); Sodium 139 mEq/L (136-145); Total Protein 6.3 g/dL (6.4-8.9); eGFR For Non-African Americans > 60 (> 60)
[2018-03-20] MEDS: *HR* Heparin 5,000 UNIT/ML VIAL SQ SCH ×2 (06:41→14:03)
[2018-03-20] MEDS: *HR* OxyCODONE Immed Rel 5 MG TABLET PO PRN ×3 (06:45→19:49)
[2018-03-20] MEDS: Pantoprazole 40 MG VIAL IVP SCH (08:07)
--- NOTE | 2018-03-20 10:06 | Discharge Summary ---
- NOTES TO OUTPATIENT PROVIDER Notes to Outpatient Provider: Patient with known history of cholelithiasis presented to the ED with right upper quadrant pain and deranged LFT. Hep panel - ve, likely due to passed stone. No evidence of cholecystitis on US. She clinically improved with supportive measures and will be discharged home. Advised to keep her elective cholecystectomy scheduled on 03/30 and avoid fatty food till then at least. SHe was advised to return to the ED immediately if pain recurs, or develops fever/chills, nausea/vomiting, or jaundice. Date of Encounter: 03/20/18 Time of Encounter: 08:20 - Discharge Diagnosis (1) Cholelithiasis Priority: Primary Status: Acute Qualifiers: Cholelithiasis location: gallbladder Cholecystitis presence: without cholecystitis Biliary obstruction: with biliary obstruction Qualified Code(s ): K80.21 - Calculus of gallbladder without cholecystitis with obstruction (2) Abdominal pain Priority: Secondary Status: Acute Qualifiers: Abdominal location: right upper quadrant Qualified Code(s): R10.11 - Right upper quadrant pain (3) Obesity (BMI 30-39.9) Priority: Secondary Status: Chronic (4) DVT prophylaxis Priority: Secondary Status: Acute Hospital course: Ms. Mckinnon is a 22 year old female with known history of cholelithiasis presented to the ED with right upper quadrant pain and deranged LFT. Hep panel - ve, likely due to passed stone. No evidence of cholecystitis on US. She clinically improved with supportive measures and will be discharged home. Advised to keep her elective cholecystectomy scheduled on 03/30 and avoid fatty food till then at least. SHe was advised to return to the ED immediately if pain recurs, or develops fever/chills, nausea/vomiting, or jaundice. Discharge discussed with: patient, family - Time Spent with Patient Total time spent providing and/or coordinating discharge services: Greater than 30 minutes - Discharge Medications Prescriptions: Acetaminophen w/Cod 300-30 mg [Tylenol w/Codeine #3] 1 each PO Q6HR 4 Days #16 tablet Ondansetron ODT [Zofran ODT] 4 mg SL Q8HR #12 tab.rapdis Home Medications: Acetaminophen w/Cod 300-30 mg [Tylenol w/Codeine #3] 1 each PO Q6HR 4 Days #16 tablet 03/20/18 [Rx] Ondansetron ODT [Zofran ODT] 4 mg SL Q8HR #12 tab.rapdis 03/20/18 [Rx] Allergies/Adverse Reactions: 3 Allergy/AdvReac Type Severity Reaction Status Date / Time No Known Allergies Allergy Verified 03/19/18 04:02 Date of admission: 03/19/18 04:47 Primary care physician: PCP ARTHUR Consults: 03/19/18 06:00 Consult to Nutrition [CONS] Routine Comment: Consulting Provider: NUTRITION Reason for Dietary Consult: MST Score - Constitutional Vitals: Temp Pulse Resp BP Pulse Ox 98.1 F 79 18 107/73 96 03/20/18 09:49 03/20/18 09:49 03/20/18 09:49 03/20/18 09:49 03/20/18 09:49 Exam: General: Alert and oriented, not in acute distress. HEENT:EOM, pupils equal, round and reactive. Anicteric sclera Cardiovascular:Normal S1 & S2, No JVD. Pulse regular. Lungs: clear to auscultation, no wheezes/rales Abdomen:Soft, minimal RUQ discomfort on deep palpation. No rebound/guarding Extremities:No deformity or swelling Neurological:Normal cognition and motor skills. Non-focal - Patient Status Disposition: Home, Self-Care Condition: Good Functional capacity at discharge: independent ambulation Overall status at discharge: patient is progressing back to baseline - Discharge Instructions Follow Up With: NONE,PCP [Primary Care Provider] - Deshawn Flowers MD [Family Provider] - - Diet and Activity Activity: resume usual activities as tolerated Diet: low fat, low cholesterol
[2018-03-21] MEDS: *HR* Heparin 5,000 UNIT/ML VIAL SQ SCH ×2 (01:01→06:26)
[2018-03-21] MEDS: Ketorolac 30 MG/ML VIAL IVP PRN ×2 (04:26→10:36)
[2018-03-21 06:14] LABS: Alanine Aminotransferase 371 Units/L (7-52); Albumin 4.3 g/dL (3.5-5.7); Albumin/Globulin Ratio 1.6 (1.1-2.2); Alkaline Phosphatase 176 Units/L (34-104); Aspartate Amino Transferase 134 Units/L (13-39); BUN/Creatinine Ratio 21 (6-26); Bilirubin,Total 2.6 mg/dL (0.3-1.0); Blood Urea Nitrogen 10 mg/dL (6-20); Calcium 9.4 mg/dL (8.6-10.3); Carbon Dioxide 22 mEq/L (23-29); Chloride 103 mEq/L (98-107); Globulin 2.7 g/dL (2.4-3.5); Glucose 85 mg/dL (70-105); Osmolality,Calculated 282 (280-300); Potassium 3.4 mEq/L (3.5-5.1); Sodium 137 mEq/L (136-145); eGFR For Non-African Americans > 60 (> 60)
[2018-03-21] MEDS ORDERED: Potassium Chloride 40 MEQ, Lidocaine 1% 2 ML in D5% in Water 500 ML IVPB ONE (07:28)
[2018-03-21 10:28] VITALS: BP 113/78
--- NOTE | 2018-03-21 13:35 | Internal Med Progress Note ---
Hospitalist Progress Note - Encounter Date of Encounter: 03/21/18 Time of Encounter: 09:17 - Subjective Interval History: Discharge was canceled yesterday as patient had persistent right upper quadrant pain. Upon reviewing the chart, her ultrasound report had an addendum stating that the CBD was dilated at 11 mm concerning for ? Choledocholithiasis. MRCP was subsequently done which revealed cholelithiasis and mild extrahepatic ductal dilatation without evidence of obstructing lesion. LFT this morning showed slightly elevated bilirubin although ALT/AST were improving. Her 6-month old daughter is in [place] and patient expressed her wish to be transferred to [facility] to be closer to her family. - Exam Vitals: Temp Pulse Resp BP Pulse Ox 98.0 F 72 15 113/78 97 03/21/18 10:26 03/21/18 10:26 03/21/18 10:26 03/21/18 10:03/21/18 10:26 Exam: General: Alert and oriented, not in acute distress. HEENT:EOM, pupils equal, round and reactive. Anicteric sclera Cardiovascular:Normal S1 & S2, No JVD. Pulse regular. Lungs: clear to auscultation, no wheezes/rales Abdomen:Soft, mild RUQ discomfort on deep palpation. No rebound/guarding Extremities:No deformity or swelling Neurological:Normal cognition and motor skills. Non-focal - Assessment and Plan (1) Cholelithiasis Status: Acute Assessment and Plan: Although MRCP did not reveal any clear evidence of obstructing lesion, patient has an ongoing right upper quadrant pain with biochemical evidence of worsening jaundice GI consult was considered however patient expressed her wish to be transferred to [facility] for the reasons mentioned above Spoke to [facility] transfer center and accepted for transfer may require ERCP if she continues to have signs and symptoms of biliary obstruction followed by cholecystectomy as planned (2) Abdominal pain Status: Acute Assessment and Plan: As above (3) Obesity (BMI 30-39.9) Status: Chronic Assessment and Plan: emphasized on the importance of weight loss, especially in the setting of fatty liver which was noted (4) DVT prophylaxis Status: Acute Assessment and Plan: Subcutaneous heparin - Time Spent with Patient Total time spent is greater than 50% in coordination of care (as documented) at patient's floor/unit and/or counseling patient: Plan of Care Discussed with: patient Internal Medicine: Result - Labs CBC & Chem 7: 03/20/18 03:40 03/21/18 05:31 Labs: BMP 03/21/18 05:31 Sodium 137 Potassium 3.4 L Chloride 103 Carbon Dioxide 22 L BUN 10 Creatinine 0.48 L Glucose 85 Calcium 9.4 Liver Function 03/21/18 Range/Units 05:31 Total Bilirubin 2.6 H (0.3-1.0) mg/dL AST 134 H (13-39) Units/L ALT 371 H (7-52) Units/L Alkaline Phosphatase 176 H (34-104) Units/L Albumin 4.3 (3.5-5.7) g/dL - ABG Interpretation ABG results: PT/INR, D-dimer PT 12.5 Seconds (9.4-12.1) H 03/19/18 05:35 - Impressions Impressions Abdomen MRI 03/20/18 13:59 IMPRESSION: 1. Cholelithiases and mild extrahepatic ductal dilatation without evidence of obstructing lesion. D/ / Bolivar Nagel MD / Bolivar Nagel MD Interpreting Provider: Bolivar Nagel MD Consult Discharge Plan - Plan Instructions: Acute Abdominal Pain (DC) Prescriptions: Acetaminophen w/Cod 300-30 mg [Tylenol w/Codeine #3] 1 each PO Q6HR 4 Days #16 tablet Ondansetron ODT [Zofran ODT] 4 mg SL Q8HR #12 tab.rapdis (1) Cholelithiasis Qualifiers: Cholelithiasis location: gallbladder Cholecystitis presence: without cholecystitis Biliary obstruction: with biliary obstruction Qualified Code(s) : K80.21 - Calculus of gallbladder without cholecystitis with obstruction (2) Abdominal pain Qualifiers: Abdominal location: right upper quadrant Qualified Code(s): R10.11 - Right upper quadrant pain
== END 2018-03-21 13:10 | disposition home or self-care (01) ==
LOC: EMEROOARM 20:51 → 3ANU 20:51 → SUATTDRO 03-19 04:47 → 3ANU 03-19 05:15
PROVIDERS: ADMIT Internal Medicine; ATTEND Internal Medicine